=== PATIENT | female | born 1990 | race African-American/Black ===

== ENCOUNTER 2016-04-03 01:08 | Observation (INO) | payer MEDICAID ==
[~2016-04-03] VITALS: Ht 175.3 cm; Wt 136.2 kg
[2016-04-03] VITALS (861 sets, daily range): BP systolic 122–140; BP diastolic 67–99; PULSE 64–84; TEMP 97–98.5; O2SAT 80–100
[2016-04-03] MEDS ORDERED: PRINZIDE 12.5 M1 TAB PO (03:02)
[2016-04-03] MEDS ORDERED: P-D NATAL W/FOL1 TAB PO (03:02)
[2016-04-03 04:01] LABS: BASO % 0.1 % (0.0-2.0); EOS # 0.1 (0.0-0.7); EOS % 0.8 % (0-4.0); GRAN # 4.8 (1.4-6.5); HEMATOCRIT 37.2 % (37.0-47.0); LYMPH # 3.3 (1.2-3.4); LYMPH % 37.8 % (20.0-51.0); MEAN CELL VOLUME 87 fl (80.0-100.0); MEAN CORPUSCULAR HEMOGLOBIN 28 pg (27.0-31.0); MEAN CORPUSCULAR HGB CONC 32 g/dl (33.0-37.0); MEAN PLATELET VOLUME 11.1 fl (7.4-10.4); MONO # 0.4 (0.1-0.6); MONO % 5.1 % (1.7-9.3); PLATELET COUNT 217 K/mm3 (130-400); RED BLOOD COUNT 4.26 M/mm3 (4.10-5.30); REDCELL DISTRIBUTION WIDTH-CV 12.7 % (11.5-14.5); WHITE BLOOD COUNT 8.6 K/mm3 (4.8-10.8)
[2016-04-03 04:11] LABS: CALCIUM 8.6 mg/dL (8.4-10.2); CREATININE, serum 0.65 mg/dL (0.52-1.25); POTASSIUM 3.3 mmol/L (3.4-5.0)
[2016-04-03 04:42] LABS: THYROID STIMULATING HORMONE 1.46 uIU/mL (0.465-4.680)
[2016-04-04 00:58] VITALS: BP 135/72; PULSE 99; TEMP 99.5
[2016-04-04 03:50] VITALS: BP 115/59; PULSE 70; TEMP 98.2
[2016-04-04 08:41] VITALS: BP 141/65; PULSE 94; TEMP 98.5
[2016-04-04 10:54] LABS: MAGNESIUM 1.9 mg/dL (1.6-2.3); POTASSIUM 3.6 mmol/L (3.4-5.0)
[2016-04-04 12:19] VITALS: BP 124/75; PULSE 84; TEMP 98.5
[2016-04-04] MEDS ORDERED: KEPPRA 500MG500 MG PO (13:19)
== END 2016-04-04 15:06 | disposition home or self-care (01) ==
LOC: IMCU 01:08 → ICU 01:50 → MEDICAL 01:50 → SURG 20:00 → ICU 20:00 → MEDICAL 20:30
PROVIDERS: Internal Medicine
DX: G40.409 Other generalized epilepsy and epileptic syndromes, not intractable, without status epilepticus (principal); I10 Essential (primary) hypertension
CPT/HCPCS: 99223-AI; 99239; A9585; G0378; J1170; J1644; J2405; J7030

== ENCOUNTER 2016-05-18 22:37 | Emergency (ER) | payer MEDICAID ==
[~2016-05-18] VITALS: Ht 175.3 cm; Wt 120.5 kg
[~2016-05-18 22:37] MED LIST: KEPPRA 500MG500 MG PO; P-D NATAL W/FOL1 TAB PO; PRINZIDE 12.5 M1 TAB PO
[2016-05-18 22:43] VITALS: TEMP 98.4
[2016-05-19] MEDS ORDERED: EPIPEN 2-PAK1 MG/ML IM (01:16)
[2016-05-19] MEDS ORDERED: PREDNISONE20 MG PO (01:16)
[2016-05-19 01:27] VITALS: BP 120/64; PULSE 69
== END 2016-05-19 01:29 | disposition home or self-care (01) ==
LOC: COL.ER 22:37
DX: T78.3XXA Angioneurotic edema, initial encounter (principal); I10 Essential (primary) hypertension
CPT/HCPCS: J0171; J2930

== ENCOUNTER 2016-06-19 14:15 | Observation (INO) | payer MEDICAID ==
[2016-06-19] VITALS (150 sets, daily range): BP systolic 133; BP diastolic 79; PULSE 82; TEMP 97.9; O2SAT 87–100
[~2016-06-19] VITALS: Ht 177.8 cm; Wt 132.5 kg
[~2016-06-19 14:15] MED LIST changes: +EPIPEN 2-PAK1 MG/ML IM; +PREDNISONE20 MG PO
[2016-06-19] MEDS ORDERED: PROVIGIL200 MG PO ×2 (14:18→15:43)
[2016-06-19] MEDS ORDERED: KEPPRA 500MG500 MG PO (14:42)
[2016-06-19] MEDS ORDERED: PRINZIDE 25 MG-1 TAB PO (14:44)
[2016-06-19 15:40] LABS: BASO % 0.1 % (0.0-2.0); EOS # 0.1 (0.0-0.7); EOS % 0.6 % (0-4.0); GRAN # 5.3 (1.4-6.5); GRAN % 66.9 % (42.2-75.2); HEMATOCRIT 41.4 % (37.0-47.0); HEMOGLOBIN 13.3 g/dl (12.5-16.0); LYMPH # 2.1 (1.2-3.4); LYMPH % 26.2 % (20.0-51.0); MEAN CELL VOLUME 89 fl (80.0-100.0); MEAN CORPUSCULAR HEMOGLOBIN 29 pg (27.0-31.0); MEAN CORPUSCULAR HGB CONC 32 g/dl (33.0-37.0); MEAN PLATELET VOLUME 11.6 fl (7.4-10.4); MONO # 0.5 (0.1-0.6); MONO % 5.9 % (1.7-9.3); PLATELET COUNT 254 K/mm3 (130-400); RED BLOOD COUNT 4.66 M/mm3 (4.10-5.30); REDCELL DISTRIBUTION WIDTH-CV 12.6 % (11.5-14.5); WHITE BLOOD COUNT 7.9 K/mm3 (4.8-10.8)
[2016-06-19] MEDS ORDERED: MICROZIDE12.5 MG PO (15:45)
[2016-06-19] MEDS ORDERED: NORVASC 10MG10 MG PO (15:45)
[2016-06-19 16:20] LABS: ADJUSTED CALCIUM 9.5 mg/dL (8.4-10.2); ALBUMIN 4.4 gm/dL (3.5-5.0); BILIRUBIN,TOTAL 0.7 mg/dL (0.0-1.0); CALCIUM 9.8 mg/dL (8.4-10.2); CREATININE, serum 0.77 mg/dL (0.52-1.25); POTASSIUM 3.1 mmol/L (3.4-5.0); TOTAL PROTEIN 8.1 gm/dL (6.4-8.2)
[2016-06-19 16:48] LABS: PH 8 (5-8); SQUAMOUS EPITHELIAL 0-2 /hpf; URINE APPEARANCE Clear; URINE BACTERIA None Seen /hpf; URINE BILIRUBIN Negative (NEGATIVE); URINE BLOOD 2+ (NEGATIVE); URINE COLOR Yellow; URINE GLUCOSE Negative (NEGATIVE); URINE KETONE Negative (NEGATIVE); URINE RBC 0-2 /hpf; URINE UROBILINOGEN Negative (NEGATIVE); URINE WBC 0-2 /hpf
[2016-06-19 16:54] LABS: AMPHETAMINE URINE NEGATIVE; BARBITURATES URINE NEGATIVE; BENZODIAZEPINES URINE NEGATIVE; BUPRENORPHINE URINE NEGATIVE; METHADONE URINE NEGATIVE; OPIATES URINE NEGATIVE; OXYCODONE URINE NEGATIVE; PHENCYCLIDINE URINE NEGATIVE; PROPOXYPHENE URINE NEGATIVE; THC CANNABINOIDS URINE NEGATIVE
[2016-06-19] MEDS ORDERED: PREDNISONE10 MG PO (20:53)
[2016-06-19] MEDS ORDERED: HCTZ 25MG TAB25 MG PO (20:55)
[2016-06-20] VITALS (321 sets, daily range): BP systolic 99–146; BP diastolic 64–98; PULSE 54–73; TEMP 97–98.6; O2SAT 77–100
[2016-06-20 06:54] LABS: POTASSIUM 3.4 mmol/L (3.4-5.0)
[2016-06-20 08:02] LABS: MAGNESIUM 2.1 mg/dL (1.6-2.3)
[2016-06-20] MEDS ORDERED: P-D NATAL W/FOL1 TAB (08:57)
[2016-06-20] MEDS ORDERED: PREDNISONE20 MG (08:57)
[2016-06-21 03:49] VITALS: BP 147/94; PULSE 68; TEMP 97
[2016-06-21 05:49] LABS: BASO % 0.2 % (0.0-2.0); EOS # 0.2 (0.0-0.7); EOS % 2.7 % (0-4.0); GRAN # 3.1 (1.4-6.5); GRAN % 56.4 % (42.2-75.2); HEMATOCRIT 39.9 % (37.0-47.0); HEMOGLOBIN 12.6 g/dl (12.5-16.0); LYMPH # 1.9 (1.2-3.4); LYMPH % 34.4 % (20.0-51.0); MEAN CELL VOLUME 90 fl (80.0-100.0); MEAN CORPUSCULAR HEMOGLOBIN 29 pg (27.0-31.0); MEAN CORPUSCULAR HGB CONC 32 g/dl (33.0-37.0); MEAN PLATELET VOLUME 11.2 fl (7.4-10.4); MONO # 0.3 (0.1-0.6); MONO % 6.1 % (1.7-9.3); PLATELET COUNT 211 K/mm3 (130-400); RED BLOOD COUNT 4.42 M/mm3 (4.10-5.30); REDCELL DISTRIBUTION WIDTH-CV 12.5 % (11.5-14.5); WHITE BLOOD COUNT 5.6 K/mm3 (4.8-10.8)
[2016-06-21 05:55] LABS: CALCIUM 8.8 mg/dL (8.4-10.2); CREATININE, serum 0.6 mg/dL (0.52-1.25); POTASSIUM 3.4 mmol/L (3.4-5.0)
[2016-06-21 08:00] VITALS: BP 151/90; PULSE 69; TEMP 97.6
[2016-06-21] MEDS ORDERED: KEPPRA1000 MG PO ×2 (10:22→10:23)
[2016-06-21] MEDS ORDERED: VIMPAT200 MG PO (10:25)
[2016-06-21] MEDS ORDERED: KLOR-CON 1010 MEQ PO (11:34)
== END 2016-06-21 12:19 | disposition home or self-care (01) ==
LOC: COL.ER 14:15 → IMCU 17:03 → ICU 19:54 → IMCU 19:54 → ICU 06-21 12:19
PROVIDERS: Family Medicine; Internal Medicine
DX: R56.9 Unspecified convulsions (principal); G43.909 Migraine, unspecified, not intractable, without status migrainosus; G47.419 Narcolepsy without cataplexy; E87.6 Hypokalemia; I10 Essential (primary) hypertension; E66.01 Morbid (severe) obesity due to excess calories
CPT/HCPCS: 99233-AI; 99239; A9585; C9254; G0378; J1170; J1650; J1885; J1953; J2060; J2405; J7030; J7120

== ENCOUNTER 2016-06-27 15:27 | Emergency (ER) | payer MEDICAID ==
[~2016-06-27] VITALS: Ht 175.3 cm; Wt 127.3 kg
[~2016-06-27 15:27] MED LIST changes: +HCTZ 25MG TAB25 MG PO; +KEPPRA1000 MG PO; +KLOR-CON 1010 MEQ PO; +MICROZIDE12.5 MG PO; +NORVASC 10MG10 MG PO; +P-D NATAL W/FOL1 TAB; +PREDNISONE10 MG PO; +PREDNISONE20 MG; +PRINZIDE 25 MG-1 TAB PO; +PROVIGIL200 MG PO; +VIMPAT200 MG PO
[2016-06-27 15:28] VITALS: TEMP 97.7
[2016-06-27] MEDS ORDERED: ULTRAM 50MG TAB50 MG PO (16:37)
[2016-06-27 17:51] LABS: CALCIUM 9.2 mg/dL (8.4-10.2); CREATININE, serum 0.73 mg/dL (0.52-1.25); POTASSIUM 3.1 mmol/L (3.4-5.0)
[2016-06-27 18:03] VITALS: BP 140/75; PULSE 76
[2016-06-27 18:08] LABS: PROLACTIN 8.9 ng/mL (3.0-18.6)
[2016-07-02 10:25] LABS: LACOSAMIDE 4.8 mcg/mL (())
== END 2016-06-27 18:04 | disposition home or self-care (01) ==
LOC: COL.ER 15:27
PROVIDERS: Emergency Medicine
DX: R51 Headache (principal); M54.2 Cervicalgia; G25.9 Extrapyramidal and movement disorder, unspecified
CPT/HCPCS: J1885

== ENCOUNTER 2016-08-20 21:00 | Emergency (ER) | payer MEDICAID ==
[~2016-08-20] VITALS: Ht 175.3 cm; Wt 113.6 kg
[~2016-08-20 21:00] MED LIST changes: +ULTRAM 50MG TAB50 MG PO
[2016-08-20 21:03] VITALS: TEMP 98.4
[2016-08-20 21:26] LABS: BASO % 0.3 % (0.0-2.0); EOS # 0.1 (0.0-0.7); EOS % 0.9 % (0-4.0); GRAN # 6.5 (1.4-6.5); GRAN % 50.5 % (42.2-75.2); HEMATOCRIT 43.1 % (37.0-47.0); HEMOGLOBIN 14.1 g/dl (12.5-16.0); LYMPH # 5.5 (1.2-3.4); LYMPH % 42.9 % (20.0-51.0); MEAN CELL VOLUME 88 fl (80.0-100.0); MEAN CORPUSCULAR HEMOGLOBIN 29 pg (27.0-31.0); MEAN CORPUSCULAR HGB CONC 33 g/dl (33.0-37.0); MEAN PLATELET VOLUME 11.2 fl (7.4-10.4); MONO # 0.7 (0.1-0.6); MONO % 5.2 % (1.7-9.3); PLATELET COUNT 280 K/mm3 (130-400); RED BLOOD COUNT 4.92 M/mm3 (4.10-5.30); WHITE BLOOD COUNT 12.9 K/mm3 (4.8-10.8)
[2016-08-20 21:33] LABS: ADJUSTED CALCIUM 8.9 mg/dL (8.4-10.2); ALBUMIN 4.5 gm/dL (3.5-5.0); BILIRUBIN,TOTAL 0.5 mg/dL (0.0-1.0); CALCIUM 9.3 mg/dL (8.4-10.2); CREATININE, serum 0.69 mg/dL (0.52-1.25); POTASSIUM 3.1 mmol/L (3.4-5.0); TOTAL PROTEIN 8.2 gm/dL (6.4-8.2)
[2016-08-20 21:48] LABS: PROLACTIN 40.4 ng/mL (3.0-18.6)
[2016-08-20] MEDS ORDERED: PREDNISONE20 MG PO (22:10)
[2016-08-20] MEDS ORDERED: EPIPEN 2-PAK1 MG/ML IM (22:10)
[2016-08-20 22:47] VITALS: BP 128/70; PULSE 90
== END 2016-08-20 22:49 | disposition home or self-care (01) ==
LOC: COL.ER 21:00
PROVIDERS: Emergency Medicine
DX: T78.1XXA Other adverse food reactions, not elsewhere classified, initial encounter (principal); G40.909 Epilepsy, unspecified, not intractable, without status epilepticus; F41.9 Anxiety disorder, unspecified; I10 Essential (primary) hypertension; J45.909 Unspecified asthma, uncomplicated; F17.290 Nicotine dependence, other tobacco product, uncomplicated; Z91.018 Allergy to other foods; Z98.890 Other specified postprocedural states
CPT/HCPCS: J1885; J2060; J2930; J7030

== ENCOUNTER 2016-08-23 21:21 | Observation (INO) | payer MEDICAID ==
[~2016-08-23] VITALS: Ht 175.3 cm; Wt 134.0 kg
[2016-08-23 22:25] LABS: HEMOGLOBIN 13.3 g/dl (12.5-16.0); MEAN CELL VOLUME 87 fl (80.0-100.0); MEAN CORPUSCULAR HEMOGLOBIN 29 pg (27.0-31.0); MEAN CORPUSCULAR HGB CONC 33 g/dl (33.0-37.0); MEAN PLATELET VOLUME 10.5 fl (7.4-10.4); PLATELET COUNT 221 K/mm3 (130-400); RED BLOOD COUNT 4.62 M/mm3 (4.10-5.30); REDCELL DISTRIBUTION WIDTH-CV 12.2 % (11.5-14.5)
[2016-08-23 22:27] LABS: ADD PATHOLOGY DIFF REVIEW NO
[2016-08-23 22:36] LABS: AMPHETAMINE URINE NEGATIVE; BARBITURATES URINE NEGATIVE; BENZODIAZEPINES URINE NEGATIVE; BUPRENORPHINE URINE NEGATIVE; METHADONE URINE NEGATIVE; OPIATES URINE NEGATIVE; OXYCODONE URINE NEGATIVE; PHENCYCLIDINE URINE NEGATIVE; PROPOXYPHENE URINE NEGATIVE; THC CANNABINOIDS URINE NEGATIVE
[2016-08-23 22:44] LABS: ADJUSTED CALCIUM 8.7 mg/dL (8.4-10.2); ALANINE AMINOTRANSFERASE 36 U/L (9-52); ALBUMIN 4.1 gm/dL (3.5-5.0); ALKALINE PHOSPHATASE 73 U/L (50-136); ANION GAP 13 mmol/L (7-16); BILIRUBIN,TOTAL 0.6 mg/dL (0.0-1.0); BLOOD UREA NITROGEN 14 mg/dL (7-17); CALCIUM 8.8 mg/dL (8.4-10.2); CARBON DIOXIDE 24 mmol/L (22-30); CHLORIDE 104 mmol/L (98-107); CREATININE, serum 0.67 mg/dL (0.52-1.25); GLUCOSE 91 mg/dL (74-106); SODIUM 141 mmol/L (137-145); TOTAL PROTEIN 7.5 gm/dL (6.4-8.2)
[2016-08-23 22:59] LABS: BAND 10 % (0-10); EOSINOPHIL 4 % (0-4); NEUTROPHILS 53 % (42.0-75.2); PROLACTIN 108.9 ng/mL (3.0-18.6); TOTAL CELLS COUNTED 100
[2016-08-23 23:10] LABS: ACETAMINOPHEN < 10 ug/mL (10-30); POTASSIUM 2.9 mmol/L (3.4-5.0); SALICYLATE < 1.0 mg/dL
[2016-08-24] VITALS (372 sets, daily range): BP systolic 103–151; BP diastolic 55–98; PULSE 59–77; TEMP 97.5–98.5; O2SAT 93–100
[2016-08-24] MEDS ORDERED: IRON90 MG PO (01:42)
[2016-08-24] MEDS ORDERED: POTASSIUM PO (01:43)
[2016-08-24 05:49] LABS: CALCIUM 8.2 mg/dL (8.4-10.2); CREATININE, serum 0.66 mg/dL (0.52-1.25); MAGNESIUM 2.1 mg/dL (1.6-2.3); POTASSIUM 3.1 mmol/L (3.4-5.0)
[2016-08-25 03:26] VITALS: BP 100/68; PULSE 115; TEMP 97.4
[2016-08-25 08:06] VITALS: BP 143/85; PULSE 76; TEMP 98.6
[2016-08-25 11:48] VITALS: BP 144/74; PULSE 74; TEMP 98
[2016-08-25] MEDS ORDERED: DEPAKOTE ER 50500 MG PO (12:59)
== END 2016-08-25 16:28 ==
LOC: COL.ER 21:21 → IMCU 23:51 → MEDICAL 08-24 18:29
PROVIDERS: Emergency Medicine; Family Medicine
DX: G40.209 Localization-related (focal) (partial) symptomatic epilepsy and epileptic syndromes with complex partial seizures, not intractable, without status epilepticus (principal); R41.82 Altered mental status, unspecified; I10 Essential (primary) hypertension; E87.6 Hypokalemia; R45.851 Suicidal ideations; G43.909 Migraine, unspecified, not intractable, without status migrainosus; F17.290 Nicotine dependence, other tobacco product, uncomplicated
CPT/HCPCS: 90791-AI; 99223-AI; 99232-AI; 99233-AI; G0378; J1200; J1630; J1953; J2060

== ENCOUNTER 2016-09-04 18:11 | Emergency (ER) | payer MEDICAID ==
[~2016-09-04] VITALS: Ht 175.3 cm; Wt 139.5 kg
[~2016-09-04 18:11] MED LIST changes: +DEPAKOTE ER 50500 MG PO; +IRON90 MG PO; +POTASSIUM PO
[2016-09-04 18:15] VITALS: TEMP 97.7
[2016-09-04 18:31] LABS: BASO % 0.3 % (0.0-2.0); EOS # 0.1 (0.0-0.7); EOS % 0.5 % (0-4.0); GRAN # 6.6 (1.4-6.5); GRAN % 57.6 % (42.2-75.2); HEMATOCRIT 42.4 % (37.0-47.0); HEMOGLOBIN 14.2 g/dl (12.5-16.0); LYMPH # 4.1 (1.2-3.4); LYMPH % 35.8 % (20.0-51.0); MEAN CELL VOLUME 87 fl (80.0-100.0); MEAN CORPUSCULAR HEMOGLOBIN 29 pg (27.0-31.0); MEAN CORPUSCULAR HGB CONC 34 g/dl (33.0-37.0); MEAN PLATELET VOLUME 10.8 fl (7.4-10.4); MONO # 0.6 (0.1-0.6); MONO % 5.5 % (1.7-9.3); PLATELET COUNT 240 K/mm3 (130-400); RED BLOOD COUNT 4.89 M/mm3 (4.10-5.30); REDCELL DISTRIBUTION WIDTH-CV 12.4 % (11.5-14.5); WHITE BLOOD COUNT 11.4 K/mm3 (4.8-10.8)
[2016-09-04 18:51] LABS: ADJUSTED CALCIUM 8.8 mg/dL (8.4-10.2); ALBUMIN 4.5 gm/dL (3.5-5.0); BILIRUBIN,TOTAL 0.6 mg/dL (0.0-1.0); C-REACTIVE PROTEIN 0.7 mg/dL (0.0-0.9); CALCIUM 9.2 mg/dL (8.4-10.2); CREATININE, serum 0.75 mg/dL (0.52-1.25); POTASSIUM 3.3 mmol/L (3.4-5.0); TOTAL PROTEIN 7.9 gm/dL (6.4-8.2)
[2016-09-04 19:30] VITALS: BP 161/78; PULSE 83
== END 2016-09-04 19:30 | disposition home or self-care (01) ==
LOC: COL.ER 18:11
PROVIDERS: Family Medicine
DX: T78.1XXA Other adverse food reactions, not elsewhere classified, initial encounter (principal); R09.89 Other specified symptoms and signs involving the circulatory and respiratory systems; R10.12 Left upper quadrant pain; G40.909 Epilepsy, unspecified, not intractable, without status epilepticus
CPT/HCPCS: J1200; J2060; J7030

== ENCOUNTER 2016-09-28 22:36 | Emergency (ER) | payer MEDICAID ==
[2016-09-28 22:44] VITALS: TEMP 98.3
[2016-09-28 22:58] LABS: BASO % 0.5 % (0.0-2.0); EOS # 0.1 (0.0-0.7); EOS % 1.6 % (0-4.0); GRAN # 4.7 (1.4-6.5); GRAN % 59.3 % (42.2-75.2); HEMOGLOBIN 12.8 g/dl (12.5-16.0); LYMPH # 2.5 (1.2-3.4); LYMPH % 32.2 % (20.0-51.0); MEAN CELL VOLUME 90 fl (80.0-100.0); MEAN CORPUSCULAR HEMOGLOBIN 29 pg (27.0-31.0); MEAN CORPUSCULAR HGB CONC 32 g/dl (33.0-37.0); MEAN PLATELET VOLUME 11.2 fl (7.4-10.4); MONO # 0.5 (0.1-0.6); MONO % 6.1 % (1.7-9.3); PLATELET COUNT 217 K/mm3 (130-400); RED BLOOD COUNT 4.47 M/mm3 (4.10-5.30); REDCELL DISTRIBUTION WIDTH-CV 12.7 % (11.5-14.5); WHITE BLOOD COUNT 7.9 K/mm3 (4.8-10.8)
[2016-09-28 23:05] LABS: ADJUSTED CALCIUM 8.9 mg/dL (8.4-10.2); ALANINE AMINOTRANSFERASE 25 U/L (9-52); ALBUMIN 4.2 gm/dL (3.5-5.0); ALKALINE PHOSPHATASE 61 U/L (50-136); ANION GAP 15 mmol/L (7-16); BILIRUBIN,TOTAL 0.4 mg/dL (0.0-1.0); BLOOD UREA NITROGEN 11 mg/dL (7-17); CALCIUM 9.1 mg/dL (8.4-10.2); CARBON DIOXIDE 24 mmol/L (22-30); CHLORIDE 103 mmol/L (98-107); CREATININE, serum 0.75 mg/dL (0.52-1.25); GLUCOSE 111 mg/dL (74-106); SODIUM 141 mmol/L (137-145); TOTAL PROTEIN 7.7 gm/dL (6.4-8.2)
[2016-09-28 23:22] LABS: PROLACTIN 21.1 ng/mL (3.0-18.6)
[2016-09-28] MEDS ORDERED: ATIVAN 0.50.5 MG/TAB PO (23:44)
[2016-09-28 23:48] VITALS: BP 134/82; PULSE 89
[2016-09-30] MEDS ORDERED: CEFTIN 250250 MG/TAB PO (19:18)
== END 2016-09-29 00:25 | disposition home or self-care (01) ==
LOC: COL.ER 22:36
PROVIDERS: Emergency Medicine
DX: R56.9 Unspecified convulsions (principal); G40.909 Epilepsy, unspecified, not intractable, without status epilepticus; I10 Essential (primary) hypertension
CPT/HCPCS: J1885; J2060; J7030

== ENCOUNTER 2016-09-30 17:19 | Emergency (ER) | payer MEDICAID ==
[~2016-09-30] VITALS: Ht 175.3 cm; Wt 136.4 kg
[~2016-09-30 17:19] MED LIST changes: +ATIVAN 0.50.5 MG/TAB PO
[2016-09-30 17:21] VITALS: TEMP 99.6
[2016-09-30 17:43] LABS: BASO % 0.6 % (0.0-2.0); EOS # 0.1 (0.0-0.7); EOS % 1.4 % (0-4.0); GRAN # 3.7 (1.4-6.5); GRAN % 55.7 % (42.2-75.2); HEMATOCRIT 36.6 % (37.0-47.0); HEMOGLOBIN 11.9 g/dl (12.5-16.0); LYMPH # 2.4 (1.2-3.4); LYMPH % 35.9 % (20.0-51.0); MEAN CELL VOLUME 89 fl (80.0-100.0); MEAN CORPUSCULAR HEMOGLOBIN 29 pg (27.0-31.0); MEAN CORPUSCULAR HGB CONC 33 g/dl (33.0-37.0); MEAN PLATELET VOLUME 11.2 fl (7.4-10.4); MONO # 0.4 (0.1-0.6); MONO % 6.1 % (1.7-9.3); PLATELET COUNT 203 K/mm3 (130-400); RED BLOOD COUNT 4.13 M/mm3 (4.10-5.30); REDCELL DISTRIBUTION WIDTH-CV 12.3 % (11.5-14.5); WHITE BLOOD COUNT 6.6 K/mm3 (4.8-10.8)
[2016-09-30 17:52] LABS: ADJUSTED CALCIUM 9.1 mg/dL (8.4-10.2); ALBUMIN 3.9 gm/dL (3.5-5.0); BILIRUBIN,TOTAL 0.3 mg/dL (0.0-1.0); CREATININE, serum 0.76 mg/dL (0.52-1.25); POTASSIUM 3.4 mmol/L (3.4-5.0)
[2016-09-30 19:09] LABS: PH 6 (5-8); SQUAMOUS EPITHELIAL 0-2 /hpf; URINE APPEARANCE Clear; URINE BACTERIA None Seen /hpf; URINE BILIRUBIN Negative (NEGATIVE); URINE BLOOD 3+ (NEGATIVE); URINE COLOR Yellow; URINE GLUCOSE Negative (NEGATIVE); URINE KETONE Negative (NEGATIVE); URINE RBC >50 /hpf; URINE UROBILINOGEN Negative (NEGATIVE)
[2016-09-30] MEDS ORDERED: CEFTIN 250250 MG/TAB PO (19:18)
[2016-09-30 19:28] VITALS: BP 155/88; PULSE 84
== END 2016-09-30 19:30 | disposition home or self-care (01) ==
LOC: COL.ER 17:19
PROVIDERS: Emergency Medicine
DX: G40.909 Epilepsy, unspecified, not intractable, without status epilepticus (principal); N39.0 Urinary tract infection, site not specified; E11.9 Type 2 diabetes mellitus without complications; F17.210 Nicotine dependence, cigarettes, uncomplicated
CPT/HCPCS: J1953; J2765; J3010; J7030

== ENCOUNTER 2016-10-17 01:24 | Emergency (ER) | payer MEDICAID ==
[~2016-10-17] VITALS: Ht 175.3 cm; Wt 143.2 kg
[~2016-10-17 01:24] MED LIST changes: +CEFTIN 250250 MG/TAB PO
[2016-10-17 01:30] VITALS: BP 142/75; TEMP 98.2
[2016-10-17] MEDS ORDERED: PREDNISONE20 MG PO (03:17)
[2016-10-17 03:26] VITALS: PULSE 89
[2016-10-17] MEDS ORDERED: ZOFRAN ODT4 MG PO (03:26)
== END 2016-10-17 03:26 | disposition home or self-care (01) ==
LOC: COL.ER 01:24
DX: J20.9 Acute bronchitis, unspecified (principal); J45.909 Unspecified asthma, uncomplicated; I10 Essential (primary) hypertension; E11.9 Type 2 diabetes mellitus without complications; G40.909 Epilepsy, unspecified, not intractable, without status epilepticus; F17.200 Nicotine dependence, unspecified, uncomplicated; Z98.890 Other specified postprocedural states
CPT/HCPCS: J7512

== ENCOUNTER 2016-10-25 23:17 | Emergency (ER) | payer MEDICAID ==
[~2016-10-25] VITALS: Ht 175.3 cm; Wt 143.2 kg
[~2016-10-25 23:17] MED LIST changes: +ZOFRAN ODT4 MG PO
[2016-10-25 23:22] VITALS: BP 143/86; TEMP 98.5
[2016-10-25] MEDS ORDERED: LATUDA60 MG PO (23:28)
[2016-10-25] MEDS ORDERED: AMBIEN 10MG10 MG PO (23:28)
[2016-10-26] MEDS ORDERED: PROMETHAZINE V473 M2 PO (00:13)
[2016-10-26] MEDS ORDERED: FLOVENT 110MCG7.9 GM IH (00:13)
[2016-10-26 00:42] VITALS: PULSE 65
== END 2016-10-26 00:45 | disposition home or self-care (01) ==
LOC: COL.ER 23:17
DX: J40 Bronchitis, not specified as acute or chronic (principal); I10 Essential (primary) hypertension; Z87.891 Personal history of nicotine dependence

== ENCOUNTER 2016-11-03 16:52 | Emergency (ER) | payer MEDICAID ==
[~2016-11-03] VITALS: Ht 175.3 cm; Wt 143.2 kg
[~2016-11-03 16:52] MED LIST changes: +AMBIEN 10MG10 MG PO; +FLOVENT 110MCG7.9 GM IH; +LATUDA60 MG PO; +PROMETHAZINE V473 M2 PO
[2016-11-03 16:55] VITALS: BP 143/78; TEMP 98.8
[2016-11-03 17:56] LABS: ADJUSTED CALCIUM 8.8 mg/dL (8.4-10.2); ALBUMIN 4.1 gm/dL (3.5-5.0); BILIRUBIN,TOTAL 0.3 mg/dL (0.0-1.0); CALCIUM 8.9 mg/dL (8.4-10.2); CREATININE, serum 0.66 mg/dL (0.52-1.25); POTASSIUM 3.2 mmol/L (3.4-5.0); TOTAL PROTEIN 7.5 gm/dL (6.4-8.2)
[2016-11-03 18:27] LABS: PH 9 (5-8); SQUAMOUS EPITHELIAL 0-2 /hpf; URINE APPEARANCE Turbid; URINE BACTERIA Rare /hpf; URINE BILIRUBIN Negative (NEGATIVE); URINE BLOOD Negative (NEGATIVE); URINE COLOR Yellow; URINE GLUCOSE Negative (NEGATIVE); URINE KETONE Negative (NEGATIVE); URINE RBC 0-2 /hpf; URINE UROBILINOGEN Negative (NEGATIVE); URINE WBC None Seen /hpf
[2016-11-03 19:32] VITALS: PULSE 73
== END 2016-11-03 19:32 | disposition home or self-care (01) ==
LOC: COL.ER 16:52
PROVIDERS: Emergency Medicine
DX: R60.0 Localized edema (principal); E11.9 Type 2 diabetes mellitus without complications; I10 Essential (primary) hypertension; F17.290 Nicotine dependence, other tobacco product, uncomplicated

== ENCOUNTER 2016-11-04 22:16 | Emergency (ER) | payer MEDICAID ==
[~2016-11-04] VITALS: Ht 175.3 cm; Wt 143.2 kg
[2016-11-04 22:24] VITALS: TEMP 97.7
[2016-11-04 23:40] VITALS: BP 132/83; PULSE 86
== END 2016-11-04 23:40 | disposition home or self-care (01) ==
LOC: COL.ER 22:16
DX: S83.92XA Sprain of unspecified site of left knee, initial encounter (principal); S93.402A Sprain of unspecified ligament of left ankle, initial encounter; W18.39XA Other fall on same level, initial encounter

== ENCOUNTER 2016-11-07 23:05 | Emergency (ER) | payer MEDICAID ==
[~2016-11-07] VITALS: Ht 175.3 cm; Wt 163.6 kg
[2016-11-07 23:06] VITALS: TEMP 98.4
[2016-11-07 23:52] LABS: BASO % 0.5 % (0.0-2.0); EOS # 0.3 (0.0-0.7); EOS % 3.1 % (0-4.0); GRAN # 5.1 (1.4-6.5); GRAN % 63.8 % (42.2-75.2); HEMATOCRIT 40.2 % (37.0-47.0); LYMPH # 2.2 (1.2-3.4); LYMPH % 26.9 % (20.0-51.0); MEAN CELL VOLUME 90 fl (80.0-100.0); MEAN CORPUSCULAR HEMOGLOBIN 29 pg (27.0-31.0); MEAN CORPUSCULAR HGB CONC 32 g/dl (33.0-37.0); MONO # 0.4 (0.1-0.6); MONO % 5.3 % (1.7-9.3); PLATELET COUNT 174 K/mm3 (130-400); RED BLOOD COUNT 4.47 M/mm3 (4.10-5.30)
[2016-11-08 00:17] LABS: ADJUSTED CALCIUM 8.9 mg/dL (8.4-10.2); ALBUMIN 4.1 gm/dL (3.5-5.0); BILIRUBIN,TOTAL 0.5 mg/dL (0.0-1.0); CREATININE, serum 0.66 mg/dL (0.52-1.25); POTASSIUM 3.1 mmol/L (3.4-5.0); TOTAL PROTEIN 7.3 gm/dL (6.4-8.2)
[2016-11-08 00:25] LABS: PROLACTIN 21.7 ng/mL (3.0-18.6)
[2016-11-08] MEDS ORDERED: PREDNISONE20 MG PO (00:40)
[2016-11-08 00:52] VITALS: BP 138/77; PULSE 86
== END 2016-11-08 00:52 | disposition home or self-care (01) ==
LOC: COL.ER 23:05
PROVIDERS: Emergency Medicine
DX: T78.1XXA Other adverse food reactions, not elsewhere classified, initial encounter (principal); E87.6 Hypokalemia; G40.909 Epilepsy, unspecified, not intractable, without status epilepticus; I10 Essential (primary) hypertension; F41.9 Anxiety disorder, unspecified; F17.210 Nicotine dependence, cigarettes, uncomplicated; Z32.02 Encounter for pregnancy test, result negative
CPT/HCPCS: J7512

== ENCOUNTER 2016-11-12 18:44 | Emergency (ER) | payer MEDICAID ==
[~2016-11-12] VITALS: Ht 175.3 cm; Wt 136.7 kg
[2016-11-12 19:05] VITALS: BP 142/92; TEMP 98.7
[2016-11-12] MEDS ORDERED: NORVASC 10MG10 MG PO (19:11)
[2016-11-12] MEDS ORDERED: LEXAPRO20 MG PO (19:11)
[2016-11-12 21:38] LABS: BASO % 0.4 % (0.0-2.0); EOS # 0.3 (0.0-0.7); EOS % 2.7 % (0-4.0); GRAN # 5.5 (1.4-6.5); GRAN % 54.9 % (42.2-75.2); HEMATOCRIT 41.4 % (37.0-47.0); HEMOGLOBIN 13.7 g/dl (12.5-16.0); LYMPH # 3.5 (1.2-3.4); LYMPH % 35.2 % (20.0-51.0); MEAN CELL VOLUME 88 fl (80.0-100.0); MEAN CORPUSCULAR HEMOGLOBIN 29 pg (27.0-31.0); MEAN CORPUSCULAR HGB CONC 33 g/dl (33.0-37.0); MEAN PLATELET VOLUME 10.9 fl (7.4-10.4); MONO # 0.7 (0.1-0.6); MONO % 6.6 % (1.7-9.3); PLATELET COUNT 259 K/mm3 (130-400); RED BLOOD COUNT 4.73 M/mm3 (4.10-5.30); REDCELL DISTRIBUTION WIDTH-CV 12.8 % (11.5-14.5); WHITE BLOOD COUNT 10.1 K/mm3 (4.8-10.8)
[2016-11-12 21:48] LABS: ADJUSTED CALCIUM 8.7 mg/dL (8.4-10.2); ALBUMIN 4.2 gm/dL (3.5-5.0); BILIRUBIN,TOTAL 0.4 mg/dL (0.0-1.0); CALCIUM 8.9 mg/dL (8.4-10.2); CREATININE, serum 0.55 mg/dL (0.52-1.25); PHOSPHOROUS 3.7 mg/dL (2.5-4.5); POTASSIUM 3.1 mmol/L (3.4-5.0); TOTAL PROTEIN 7.8 gm/dL (6.4-8.2)
[2016-11-12 23:19] VITALS: PULSE 64
== END 2016-11-12 23:19 | disposition home or self-care (01) ==
LOC: COL.ER 18:44
PROVIDERS: Emergency Medicine
DX: R51 Headache (principal); I10 Essential (primary) hypertension; E87.6 Hypokalemia; R56.9 Unspecified convulsions; R42 Dizziness and giddiness; R61 Generalized hyperhidrosis
CPT/HCPCS: J7030

== ENCOUNTER 2016-11-14 16:11 | Emergency (ER) | payer MEDICAID ==
[~2016-11-14] VITALS: Ht 175.3 cm; Wt 136.4 kg
[~2016-11-14 16:11] MED LIST changes: +LEXAPRO20 MG PO
[2016-11-14 16:14] VITALS: BP 143/88; PULSE 93; TEMP 98.6
== END 2016-11-14 18:11 | disposition home or self-care (01) ==
LOC: COL.ER 16:11
DX: S90.32XA Contusion of left foot, initial encounter (principal); I10 Essential (primary) hypertension; E11.9 Type 2 diabetes mellitus without complications; J45.909 Unspecified asthma, uncomplicated; F17.290 Nicotine dependence, other tobacco product, uncomplicated; W34.010A Accidental discharge of airgun, initial encounter; Y93.01 Activity, walking, marching and hiking; Y92.410 Unspecified street and highway as the place of occurrence of the external cause

== ENCOUNTER 2016-11-23 14:32 | Emergency (ER) | payer MEDICAID ==
[~2016-11-23] VITALS: Ht 22.9 cm; Wt 145.5 kg
[2016-11-23 14:35] VITALS: TEMP 97.7
[2016-11-23 14:57] LABS: BASO % 0.4 % (0.0-2.0); EOS # 0.2 (0.0-0.7); EOS % 2.4 % (0-4.0); GRAN # 5.4 (1.4-6.5); GRAN % 58.6 % (42.2-75.2); HEMATOCRIT 41.2 % (37.0-47.0); HEMOGLOBIN 13.4 g/dl (12.5-16.0); LYMPH # 2.9 (1.2-3.4); LYMPH % 31.6 % (20.0-51.0); MEAN CELL VOLUME 90 fl (80.0-100.0); MEAN CORPUSCULAR HEMOGLOBIN 29 pg (27.0-31.0); MEAN CORPUSCULAR HGB CONC 33 g/dl (33.0-37.0); MEAN PLATELET VOLUME 11.5 fl (7.4-10.4); MONO # 0.6 (0.1-0.6); MONO % 6.6 % (1.7-9.3); PLATELET COUNT 218 K/mm3 (130-400); RED BLOOD COUNT 4.58 M/mm3 (4.10-5.30); REDCELL DISTRIBUTION WIDTH-CV 13.2 % (11.5-14.5); WHITE BLOOD COUNT 9.2 K/mm3 (4.8-10.8)
[2016-11-23 15:22] LABS: ADJUSTED CALCIUM 9.1 mg/dL (8.4-10.2); ALBUMIN 4.2 gm/dL (3.5-5.0); BILIRUBIN,TOTAL 0.5 mg/dL (0.0-1.0); CALCIUM 9.3 mg/dL (8.4-10.2); CREATININE, serum 0.67 mg/dL (0.52-1.25); POTASSIUM 3.5 mmol/L (3.4-5.0); TOTAL PROTEIN 7.6 gm/dL (6.4-8.2)
[2016-11-23] MEDS ORDERED: PREDNISONE20 MG PO (17:07)
[2016-11-23 17:17] VITALS: BP 124/79; PULSE 78
== END 2016-11-23 17:24 | disposition home or self-care (01) ==
LOC: COL.ER 14:32
PROVIDERS: Family Medicine
DX: J45.909 Unspecified asthma, uncomplicated (principal); I10 Essential (primary) hypertension; G40.909 Epilepsy, unspecified, not intractable, without status epilepticus; G89.29 Other chronic pain; M54.9 Dorsalgia, unspecified
CPT/HCPCS: J2930

== ENCOUNTER 2016-11-29 20:03 | Emergency (ER) | payer MEDICAID ==
[~2016-11-29] VITALS: Ht 175.3 cm; Wt 148.2 kg
[2016-11-29 20:04] VITALS: TEMP 98.3
[2016-11-29 21:36] VITALS: BP 130/87; PULSE 79
== END 2016-11-29 21:36 | disposition home or self-care (01) ==
LOC: COL.ER 20:03
DX: R51 Headache (principal); E11.9 Type 2 diabetes mellitus without complications; I10 Essential (primary) hypertension; F20.9 Schizophrenia, unspecified; F43.10 Post-traumatic stress disorder, unspecified; F17.210 Nicotine dependence, cigarettes, uncomplicated; Z79.84 Long term (current) use of oral hypoglycemic drugs
CPT/HCPCS: J0595; J1200; J2550

== ENCOUNTER 2016-12-01 19:02 | Emergency (ER) | payer MEDICAID ==
[~2016-12-01] VITALS: Ht 175.3 cm; Wt 148.2 kg
[2016-12-01 19:06] VITALS: BP 113/42; PULSE 96; TEMP 97.5
[2016-12-01 19:42] LABS: BASO % 0.3 % (0.0-2.0); EOS # 0.3 (0.0-0.7); EOS % 3.1 % (0-4.0); GRAN # 6.3 (1.4-6.5); GRAN % 64.3 % (42.2-75.2); HEMATOCRIT 40.1 % (37.0-47.0); HEMOGLOBIN 13.2 g/dl (12.5-16.0); LYMPH # 2.7 (1.2-3.4); MEAN CELL VOLUME 90 fl (80.0-100.0); MEAN CORPUSCULAR HEMOGLOBIN 30 pg (27.0-31.0); MEAN CORPUSCULAR HGB CONC 33 g/dl (33.0-37.0); MEAN PLATELET VOLUME 11.1 fl (7.4-10.4); MONO # 0.5 (0.1-0.6); MONO % 5.1 % (1.7-9.3); PLATELET COUNT 210 K/mm3 (130-400); RED BLOOD COUNT 4.46 M/mm3 (4.10-5.30); REDCELL DISTRIBUTION WIDTH-CV 13.1 % (11.5-14.5); WHITE BLOOD COUNT 9.8 K/mm3 (4.8-10.8)
[2016-12-01 19:56] LABS: ADJUSTED CALCIUM 9.3 mg/dL (8.4-10.2); ALANINE AMINOTRANSFERASE 44 U/L (9-52); ALBUMIN 4.2 gm/dL (3.5-5.0); ALKALINE PHOSPHATASE 80 U/L (50-136); ANION GAP 10 mmol/L (7-16); BILIRUBIN,TOTAL 0.4 mg/dL (0.0-1.0); BLOOD UREA NITROGEN 11 mg/dL (7-17); C-REACTIVE PROTEIN 1.6 mg/dL (0.0-0.9); CALCIUM 9.5 mg/dL (8.4-10.2); CARBON DIOXIDE 28 mmol/L (22-30); CHLORIDE 103 mmol/L (98-107); CREATININE, serum 0.74 mg/dL (0.52-1.25); GLUCOSE 98 mg/dL (74-106); POTASSIUM 3.3 mmol/L (3.4-5.0); SODIUM 141 mmol/L (137-145); TOTAL PROTEIN 7.6 gm/dL (6.4-8.2)
[2016-12-01 20:05] LABS: TROPONIN-I < 0.012 ng/mL (0.000-0.034)
[2016-12-01] MEDS ORDERED: ZITHROMAX 250M250 MG PO (20:15)
== END 2016-12-01 20:30 | disposition home or self-care (01) ==
LOC: COL.ER 19:02
PROVIDERS: Emergency Medicine
DX: J45.909 Unspecified asthma, uncomplicated (principal); I10 Essential (primary) hypertension; F17.210 Nicotine dependence, cigarettes, uncomplicated
CPT/HCPCS: J7512

== ENCOUNTER 2016-12-09 17:46 | Emergency (ER) | payer MEDICAID ==
[~2016-12-09] VITALS: Ht 175.3 cm; Wt 148.2 kg
[~2016-12-09 17:46] MED LIST changes: +ZITHROMAX 250M250 MG PO
[2016-12-09 17:50] VITALS: BP 156/89; PULSE 94; TEMP 98.1
== END 2016-12-09 18:48 | disposition home or self-care (01) ==
LOC: COL.ER 17:46
DX: T78.1XXA Other adverse food reactions, not elsewhere classified, initial encounter (principal); L29.9 Pruritus, unspecified; E11.9 Type 2 diabetes mellitus without complications; I10 Essential (primary) hypertension; F41.9 Anxiety disorder, unspecified; J45.909 Unspecified asthma, uncomplicated; Z91.09 Other allergy status, other than to drugs and biological substances
CPT/HCPCS: J1100; J1200

== ENCOUNTER 2016-12-14 21:09 | Emergency (ER) | payer MEDICAID ==
[~2016-12-14] VITALS: Ht 175.3 cm; Wt 148.2 kg
[2016-12-14 21:09] VITALS: TEMP 98.3
[2016-12-14 22:25] LABS: ADJUSTED CALCIUM 8.5 mg/dL (8.4-10.2); ALANINE AMINOTRANSFERASE 32 U/L (9-52); ALBUMIN 4.4 gm/dL (3.5-5.0); ALKALINE PHOSPHATASE 64 U/L (50-136); ANION GAP 11 mmol/L (7-16); BASO % 0.3 % (0.0-2.0); BILIRUBIN,TOTAL 0.9 mg/dL (0.0-1.0); BLOOD UREA NITROGEN 9 mg/dL (7-17); CALCIUM 8.8 mg/dL (8.4-10.2); CARBON DIOXIDE 23 mmol/L (22-30); CHLORIDE 107 mmol/L (98-107); CREATININE, serum 0.63 mg/dL (0.52-1.25); EOS # 0.1 (0.0-0.7); EOS % 1.2 % (0-4.0); GLUCOSE 81 mg/dL (74-106); GRAN # 7.4 (1.4-6.5); GRAN % 65.2 % (42.2-75.2); HEMATOCRIT 39.9 % (37.0-47.0); LYMPH # 3.1 (1.2-3.4); LYMPH % 27.7 % (20.0-51.0); MEAN CELL VOLUME 89 fl (80.0-100.0); MEAN CORPUSCULAR HEMOGLOBIN 29 pg (27.0-31.0); MEAN CORPUSCULAR HGB CONC 33 g/dl (33.0-37.0); MEAN PLATELET VOLUME 11.1 fl (7.4-10.4); MONO # 0.6 (0.1-0.6); MONO % 5.3 % (1.7-9.3); PLATELET COUNT 254 K/mm3 (130-400); POTASSIUM 3.6 mmol/L (3.4-5.0); RED BLOOD COUNT 4.48 M/mm3 (4.10-5.30); REDCELL DISTRIBUTION WIDTH-CV 12.6 % (11.5-14.5); SODIUM 140 mmol/L (137-145); TOTAL PROTEIN 7.5 gm/dL (6.4-8.2); WHITE BLOOD COUNT 11.3 K/mm3 (4.8-10.8)
[2016-12-14 22:35] VITALS: BP 121/64; PULSE 67
[2016-12-14 22:48] LABS: TROPONIN-I < 0.012 ng/mL (0.000-0.034)
== END 2016-12-15 | disposition home or self-care (01) ==
LOC: COL.ER 21:09
PROVIDERS: Physician Assistant
DX: R07.9 Chest pain, unspecified (principal); F25.9 Schizoaffective disorder, unspecified; F32.9 Major depressive disorder, single episode, unspecified; F17.200 Nicotine dependence, unspecified, uncomplicated; G40.802 Other epilepsy, not intractable, without status epilepticus; G89.29 Other chronic pain; J45.909 Unspecified asthma, uncomplicated

== ENCOUNTER 2016-12-20 21:44 | Emergency (ER) | payer MEDICAID ==
[~2016-12-20] VITALS: Ht 175.3 cm; Wt 148.2 kg
[2016-12-20 21:51] VITALS: BP 142/98; PULSE 86; TEMP 98
== END 2016-12-20 23:34 | disposition home or self-care (01) ==
LOC: COL.ER 21:44
DX: T78.1XXA Other adverse food reactions, not elsewhere classified, initial encounter (principal); L29.9 Pruritus, unspecified; E11.9 Type 2 diabetes mellitus without complications; I10 Essential (primary) hypertension; R56.9 Unspecified convulsions; J45.909 Unspecified asthma, uncomplicated; F41.9 Anxiety disorder, unspecified; F17.200 Nicotine dependence, unspecified, uncomplicated
CPT/HCPCS: J8540

== ENCOUNTER 2016-12-26 13:35 | Emergency (ER) | payer MEDICAID ==
[~2016-12-26] VITALS: Ht 175.3 cm; Wt 148.2 kg
[2016-12-26 13:54] VITALS: BP 132/82; PULSE 84; TEMP 98.6
== END 2016-12-26 14:15 | disposition home or self-care (01) ==
LOC: COL.ER 13:35
DX: S00.83XA Contusion of other part of head, initial encounter (principal); I10 Essential (primary) hypertension; F17.210 Nicotine dependence, cigarettes, uncomplicated; Y04.0XXA Assault by unarmed brawl or fight, initial encounter; Y99.0 Civilian activity done for income or pay

== ENCOUNTER 2017-02-04 17:23 | Emergency (ER) | payer MEDICAID ==
[~2017-02-04] VITALS: Ht 175.3 cm; Wt 148.2 kg
[2017-02-04 17:25] VITALS: BP 151/94; TEMP 98.6
[2017-02-04 17:46] LABS: BASO % 0.3 % (0.0-2.0); EOS # 0.2 (0.0-0.7); EOS % 1.9 % (0-4.0); GRAN # 5.7 (1.4-6.5); HEMATOCRIT 41.2 % (37.0-47.0); HEMOGLOBIN 13.7 g/dl (12.5-16.0); LYMPH # 2.8 (1.2-3.4); LYMPH % 29.7 % (20.0-51.0); MEAN CELL VOLUME 89 fl (80.0-100.0); MEAN CORPUSCULAR HEMOGLOBIN 30 pg (27.0-31.0); MEAN CORPUSCULAR HGB CONC 33 g/dl (33.0-37.0); MEAN PLATELET VOLUME 11.5 fl (7.4-10.4); MONO # 0.6 (0.1-0.6); MONO % 6.9 % (1.7-9.3); PLATELET COUNT 228 K/mm3 (130-400); RED BLOOD COUNT 4.64 M/mm3 (4.10-5.30); WHITE BLOOD COUNT 9.3 K/mm3 (4.8-10.8)
[2017-02-04 17:54] LABS: ADJUSTED CALCIUM 9.1 mg/dL (8.4-10.2); ALBUMIN 4.2 gm/dL (3.5-5.0); BILIRUBIN,TOTAL 0.3 mg/dL (0.0-1.0); CALCIUM 9.3 mg/dL (8.4-10.2); CREATININE, serum 0.77 mg/dL (0.52-1.25); POTASSIUM 3.4 mmol/L (3.4-5.0); TOTAL PROTEIN 7.4 gm/dL (6.4-8.2)
[2017-02-04 19:23] VITALS: PULSE 85
== END 2017-02-04 19:23 | disposition home or self-care (01) ==
LOC: COL.ER 17:23
PROVIDERS: Emergency Medicine
DX: R56.9 Unspecified convulsions (principal); R41.82 Altered mental status, unspecified; E11.9 Type 2 diabetes mellitus without complications; F17.210 Nicotine dependence, cigarettes, uncomplicated
CPT/HCPCS: J1885; J2060; J7030

== ENCOUNTER 2017-02-09 16:10 | Emergency (ER) | payer MEDICAID ==
[~2017-02-09] VITALS: Ht 175.3 cm; Wt 148.2 kg
[2017-02-09 16:15] VITALS: TEMP 99.1
[2017-02-09 16:38] VITALS: BP 134/89
[2017-02-09 16:51] VITALS: PULSE 85
== END 2017-02-09 16:51 | disposition home or self-care (01) ==
LOC: COL.ER 16:10
DX: S51.812A Laceration without foreign body of left forearm, initial encounter (principal); E11.9 Type 2 diabetes mellitus without complications; I10 Essential (primary) hypertension; J45.909 Unspecified asthma, uncomplicated; F41.9 Anxiety disorder, unspecified; F17.210 Nicotine dependence, cigarettes, uncomplicated; Z79.84 Long term (current) use of oral hypoglycemic drugs; W26.9XXA Contact with unspecified sharp object(s), initial encounter; Y92.002 Bathroom of unspecified non-institutional (private) residence as the place of occurrence of the external cause

== ENCOUNTER 2017-02-16 11:23 | Emergency (ER) | payer MEDICAID ==
[2017-02-16 11:27] VITALS: BP 143/90; PULSE 97; TEMP 99
== END 2017-02-16 11:31 | disposition home or self-care (01) ==
LOC: COL.ER 11:23
DX: S51.812D Laceration without foreign body of left forearm, subsequent encounter (principal)

== ENCOUNTER 2017-04-13 16:50 | Emergency (ER) | payer SELFPAY ==
[~2017-04-13] VITALS: Ht 175.3 cm; Wt 148.2 kg
[2017-04-13 16:52] VITALS: BP 145/105; TEMP 98.1
[2017-04-13] MEDS ORDERED: NORCO 325 MG-51 TAB PO (17:39)
[2017-04-13 17:52] VITALS: PULSE 84
== END 2017-04-13 17:53 | disposition home or self-care (01) ==
LOC: COL.ER 16:50
DX: S80.02XA Contusion of left knee, initial encounter (principal); W18.30XA Fall on same level, unspecified, initial encounter
CPT/HCPCS: J1885

== ENCOUNTER 2017-04-21 20:41 | Emergency (ER) | payer SELFPAY ==
[~2017-04-21] VITALS: Ht 175.3 cm; Wt 147.3 kg
[~2017-04-21 20:41] MED LIST changes: +NORCO 325 MG-51 TAB PO
[2017-04-21 20:49] VITALS: BP 147/89; TEMP 97.8
[2017-04-21 21:52] VITALS: PULSE 88
== END 2017-04-21 21:51 | disposition home or self-care (01) ==
LOC: COL.ER 20:41
DX: T78.1XXA Other adverse food reactions, not elsewhere classified, initial encounter (principal); E11.9 Type 2 diabetes mellitus without complications; F41.9 Anxiety disorder, unspecified; F17.210 Nicotine dependence, cigarettes, uncomplicated
CPT/HCPCS: J1100

== ENCOUNTER 2017-06-05 14:52 | Emergency (ER) | payer BC ==
[~2017-06-05] VITALS: Ht 175.3 cm; Wt 147.3 kg
[2017-06-05 14:57] VITALS: TEMP 98
[2017-06-05] MEDS ORDERED: PREDNISONE20 MG PO (15:49)
[2017-06-05] MEDS ORDERED: EPIPEN 2-PAK1 MG/ML IM (17:05)
[2017-06-05 17:39] VITALS: BP 150/97; PULSE 102
== END 2017-06-05 17:41 | disposition home or self-care (01) ==
LOC: COL.ER 14:52
DX: T78.40XA Allergy, unspecified, initial encounter (principal); J45.909 Unspecified asthma, uncomplicated; F17.210 Nicotine dependence, cigarettes, uncomplicated
CPT/HCPCS: J2060; J2270; J7030

== ENCOUNTER 2017-06-28 21:26 | Emergency (ER) | payer BC ==
[~2017-06-28] VITALS: Ht 175.3 cm; Wt 145.5 kg
[2017-06-28 21:58] VITALS: TEMP 97
[2017-06-28 21:59] LABS: COLLECTION METHOD CLEAN CATCH
[2017-06-28 22:23] LABS: AMORPHOUS CRYSTAL Present /uL; PH 7 (5-8); SQUAMOUS EPITHELIAL 0-2 /hpf; URINE APPEARANCE Cloudy; URINE BACTERIA None Seen /hpf; URINE BILIRUBIN Negative (NEGATIVE); URINE BLOOD 1+ (NEGATIVE); URINE COLOR Yellow; URINE GLUCOSE Negative (NEGATIVE); URINE KETONE Negative (NEGATIVE); URINE LEUKOCYTE ESTERASE Negative (NEGATIVE); URINE NITRATE Negative (NEGATIVE); URINE PROTEIN(semi-quant) Negative (NEGATIVE); URINE RBC 20-50 /hpf; URINE UROBILINOGEN Negative (NEGATIVE)
[2017-06-28 23:05] VITALS: BP 157/116; PULSE 80
== END 2017-06-28 23:05 | disposition home or self-care (01) ==
LOC: COL.ER 21:26
PROVIDERS: Physician Assistant
DX: M54.89 Other dorsalgia (principal); I10 Essential (primary) hypertension
CPT/HCPCS: J1885

== ENCOUNTER 2017-07-07 19:49 | Emergency (ER) | payer BC ==
[~2017-07-07] VITALS: Ht 175.3 cm; Wt 141.8 kg
[2017-07-07 19:53] VITALS: TEMP 97.9
[2017-07-07] MEDS ORDERED: GLUCOPHAGE500 MG/TAB PO (20:28)
[2017-07-07] MEDS ORDERED: FLEXERIL 1010 MG/TAB PO (20:28)
[2017-07-07] MEDS ORDERED: MINIPRESS2 MG PO (20:29)
[2017-07-07] MEDS ORDERED: SEROQUEL 1100 MG/TAB PO (20:29)
[2017-07-07] MEDS ORDERED: ZYPREXA 5MG5 MG PO (20:29)
[2017-07-07] MEDS ORDERED: ULTRAM 50MG TAB50 MG PO (20:29)
[2017-07-07 21:11] VITALS: BP 176/89; PULSE 89
== END 2017-07-07 21:13 | disposition home or self-care (01) ==
LOC: COL.ER 19:49
DX: S70.02XA Contusion of left hip, initial encounter (principal); G40.909 Epilepsy, unspecified, not intractable, without status epilepticus; W18.39XA Other fall on same level, initial encounter; Y92.009 Unspecified place in unspecified non-institutional (private) residence as the place of occurrence of the external cause; Z79.84 Long term (current) use of oral hypoglycemic drugs

== ENCOUNTER 2017-08-01 15:07 | Emergency (ER) | payer BC ==
[~2017-08-01] VITALS: Ht 175.3 cm; Wt 137.7 kg
[~2017-08-01 15:07] MED LIST changes: +DESYREL 100MG100 MG PO; +FLEXERIL 1010 MG/TAB PO; +GLUCOPHAGE500 MG/TAB PO; +K-DUR20 MEQ PO; +MINIPRESS2 MG PO; +SEROQUEL 1100 MG/TAB PO; +ZYPREXA 5MG5 MG PO
[2017-08-01 15:09] VITALS: BP 144/96; TEMP 97.8
[2017-08-01] MEDS ORDERED: ATARAX 25MG25 MG/TAB PO (15:23)
[2017-08-01 15:47] VITALS: PULSE 80
== END 2017-08-01 15:48 | disposition home or self-care (01) ==
LOC: COL.ER 15:07
DX: L29.9 Pruritus, unspecified (principal); T78.40XA Allergy, unspecified, initial encounter; Z79.84 Long term (current) use of oral hypoglycemic drugs
CPT/HCPCS: J1100

== ENCOUNTER 2017-08-07 21:19 | Emergency (ER) | payer BC ==
[~2017-08-07] VITALS: Ht 175.3 cm; Wt 139.5 kg
[~2017-08-07 21:19] MED LIST changes: +ATARAX 25MG25 MG/TAB PO
[2017-08-07 21:26] VITALS: TEMP 97.2
[2017-08-07 22:31] LABS: BASO % 0.4 % (0.0-2.0); EOS # 0.2 (0.0-0.7); GRAN # 5.5 (1.4-6.5); GRAN % 59.1 % (42.2-75.2); HEMATOCRIT 40.4 % (37.0-47.0); HEMOGLOBIN 13.4 g/dl (12.5-16.0); LYMPH % 32.7 % (20.0-51.0); MEAN CELL VOLUME 87 fl (80.0-100.0); MEAN CORPUSCULAR HEMOGLOBIN 29 pg (27.0-31.0); MEAN CORPUSCULAR HGB CONC 33 g/dl (33.0-37.0); MEAN PLATELET VOLUME 11.1 fl (7.4-10.4); MONO # 0.5 (0.1-0.6); MONO % 5.6 % (1.7-9.3); PLATELET COUNT 242 K/mm3 (130-400); RED BLOOD COUNT 4.65 M/mm3 (4.10-5.30); REDCELL DISTRIBUTION WIDTH-CV 12.4 % (11.5-14.5)
[2017-08-07 22:40] LABS: ALBUMIN 4.1 gm/dL (3.5-5.0); BILIRUBIN,TOTAL 0.3 mg/dL (0.0-1.0); CALCIUM 9.4 mg/dL (8.4-10.2); CREATININE, serum 0.75 mg/dL (0.52-1.25)
[2017-08-07 22:44] LABS: POTASSIUM 2.7 mmol/L (3.4-5.0)
[2017-08-07 22:51] LABS: COLLECTION METHOD CLEAN CATCH
[2017-08-07 22:57] LABS: MUCOUS Present /lpf; PH 6 (5-8); URINE APPEARANCE Clear; URINE BACTERIA None Seen /hpf; URINE BILIRUBIN Negative (NEGATIVE); URINE BLOOD 1+ (NEGATIVE); URINE COLOR Yellow; URINE GLUCOSE Negative (NEGATIVE); URINE KETONE Negative (NEGATIVE); URINE LEUKOCYTE ESTERASE Negative (NEGATIVE); URINE NITRATE Negative (NEGATIVE); URINE PROTEIN(semi-quant) Negative (NEGATIVE); URINE RBC 0-2 /hpf
[2017-08-07 22:57] LABS: PROLACTIN 11.9 ng/mL (3.0-18.6)
[2017-08-07] MEDS ORDERED: K-DUR 10 MEQ T10 MEQ PO (23:48)
[2017-08-08 00:10] VITALS: BP 156/106; PULSE 75
== END 2017-08-08 00:11 | disposition home or self-care (01) ==
LOC: COL.ER 21:19
PROVIDERS: Emergency Medicine
DX: G40.909 Epilepsy, unspecified, not intractable, without status epilepticus (principal); I10 Essential (primary) hypertension; E66.9 Obesity, unspecified; F17.290 Nicotine dependence, other tobacco product, uncomplicated; Z79.84 Long term (current) use of oral hypoglycemic drugs

== ENCOUNTER 2017-08-09 16:59 | Emergency (ER) | payer BC ==
[~2017-08-09] VITALS: Ht 152.4 cm; Wt 138.6 kg
[~2017-08-09 16:59] MED LIST changes: +K-DUR 10 MEQ T10 MEQ PO
[2017-08-09 17:07] VITALS: BP 169/85; TEMP 98.4
[2017-08-09 18:06] VITALS: PULSE 87
== END 2017-08-09 18:07 | disposition home or self-care (01) ==
LOC: COL.ER 16:59
DX: T78.1XXA Other adverse food reactions, not elsewhere classified, initial encounter (principal); F17.290 Nicotine dependence, other tobacco product, uncomplicated; Z79.84 Long term (current) use of oral hypoglycemic drugs
CPT/HCPCS: J1100

== ENCOUNTER 2017-08-19 14:09 | Emergency (ER) | payer BC ==
[~2017-08-19] VITALS: Ht 175.3 cm; Wt 138.6 kg
[2017-08-19 14:12] VITALS: BP 154/80; TEMP 98.7
[2017-08-19] MEDS ORDERED: TRIAMCINOLONE A15 GM TP (15:28)
[2017-08-19 15:44] VITALS: PULSE 83
== END 2017-08-19 15:44 | disposition home or self-care (01) ==
LOC: COL.ER 14:09
DX: L30.9 Dermatitis, unspecified (principal); E11.9 Type 2 diabetes mellitus without complications; G40.909 Epilepsy, unspecified, not intractable, without status epilepticus; F31.9 Bipolar disorder, unspecified; F41.9 Anxiety disorder, unspecified; Z79.84 Long term (current) use of oral hypoglycemic drugs

== ENCOUNTER 2017-08-20 08:46 | Emergency (ER) | payer BC ==
[~2017-08-20] VITALS: Wt 136.8 kg
[~2017-08-20 08:46] MED LIST changes: +TRIAMCINOLONE A15 GM TP
[2017-08-20 08:51] VITALS: BP 143/100
[2017-08-20 09:40] LABS: BASO % 0.5 % (0.0-2.0); EOS # 0.1 (0.0-0.7); EOS % 1.1 % (0-4.0); GRAN % 60.9 % (42.2-75.2); HEMATOCRIT 41.4 % (37.0-47.0); HEMOGLOBIN 13.6 g/dl (12.5-16.0); MEAN CELL VOLUME 87 fl (80.0-100.0); MEAN CORPUSCULAR HEMOGLOBIN 29 pg (27.0-31.0); MEAN CORPUSCULAR HGB CONC 33 g/dl (33.0-37.0); MEAN PLATELET VOLUME 11.5 fl (7.4-10.4); MONO # 0.5 (0.1-0.6); MONO % 7.2 % (1.7-9.3); PLATELET COUNT 231 K/mm3 (130-400); RED BLOOD COUNT 4.78 M/mm3 (4.10-5.30); REDCELL DISTRIBUTION WIDTH-CV 12.9 % (11.5-14.5)
[2017-08-20 10:09] LABS: ALBUMIN 3.8 gm/dL (3.5-5.0); BILIRUBIN,TOTAL 0.6 mg/dL (0.0-1.0); CALCIUM 9.1 mg/dL (8.4-10.2); CREATININE, serum 0.7 mg/dL (0.52-1.25); POTASSIUM 3.3 mmol/L (3.4-5.0); TOTAL PROTEIN 7.7 gm/dL (6.4-8.2)
[2017-08-20 10:26] LABS: PROLACTIN 16.3 ng/mL (3.0-18.6)
[2017-08-20 10:57] LABS: COLLECTION METHOD CLEAN CATCH
[2017-08-20 11:03] LABS: MUCOUS Present /lpf; PH 7 (5-8); URINE APPEARANCE Clear; URINE BACTERIA None Seen /hpf; URINE BILIRUBIN Negative (NEGATIVE); URINE BLOOD 1+ (NEGATIVE); URINE COLOR Yellow; URINE GLUCOSE Negative (NEGATIVE); URINE KETONE Negative (NEGATIVE); URINE LEUKOCYTE ESTERASE Trace (NEGATIVE); URINE NITRATE Negative (NEGATIVE); URINE PROTEIN(semi-quant) Negative (NEGATIVE); URINE RBC 0-2 /hpf; URINE UROBILINOGEN Negative (NEGATIVE)
[2017-08-20 11:33] VITALS: PULSE 81; TEMP 97.9
== END 2017-08-20 11:30 | disposition home or self-care (01) ==
LOC: COL.ER 08:46
PROVIDERS: Emergency Medicine; Physician Assistant
DX: G40.909 Epilepsy, unspecified, not intractable, without status epilepticus (principal); E11.9 Type 2 diabetes mellitus without complications; I10 Essential (primary) hypertension; F31.9 Bipolar disorder, unspecified; F41.9 Anxiety disorder, unspecified; F17.210 Nicotine dependence, cigarettes, uncomplicated; Z87.2 Personal history of diseases of the skin and subcutaneous tissue; Z98.890 Other specified postprocedural states; Z79.84 Long term (current) use of oral hypoglycemic drugs
CPT/HCPCS: J2060; J7030

== ENCOUNTER 2017-11-22 21:30 | Emergency (ER) | payer BC ==
[~2017-11-22] VITALS: Ht 175.3 cm; Wt 124.5 kg
[2017-11-22 21:37] VITALS: BP 130/86; TEMP 98.8
[2017-11-22 22:23] LABS: COLLECTION METHOD CLEAN CATCH
[2017-11-22 22:26] LABS: BASO % 0.5 % (0.0-2.0); EOS # 0.1 (0.0-0.7); GRAN # 5.2 (1.4-6.5); GRAN % 59.1 % (42.2-75.2); HEMATOCRIT 38.3 % (37.0-47.0); HEMOGLOBIN 12.7 g/dl (12.5-16.0); LYMPH % 34.7 % (20.0-51.0); MEAN CELL VOLUME 87 fl (80.0-100.0); MEAN CORPUSCULAR HEMOGLOBIN 29 pg (27.0-31.0); MEAN CORPUSCULAR HGB CONC 33 g/dl (33.0-37.0); MEAN PLATELET VOLUME 11.3 fl (7.4-10.4); MONO # 0.4 (0.1-0.6); MONO % 4.5 % (1.7-9.3); PLATELET COUNT 238 K/mm3 (130-400); RED BLOOD COUNT 4.43 M/mm3 (4.10-5.30); REDCELL DISTRIBUTION WIDTH-CV 12.2 % (11.5-14.5)
[2017-11-22 22:37] LABS: MUCOUS Present /lpf; PH 7 (5-8); SQUAMOUS EPITHELIAL 0-2 /hpf; URINE APPEARANCE Clear; URINE BACTERIA None Seen /hpf; URINE BILIRUBIN Negative (NEGATIVE); URINE BLOOD 2+ (NEGATIVE); URINE COLOR Yellow; URINE GLUCOSE Negative (NEGATIVE); URINE KETONE Negative (NEGATIVE); URINE LEUKOCYTE ESTERASE Negative (NEGATIVE); URINE NITRATE Negative (NEGATIVE); URINE PROTEIN(semi-quant) Negative (NEGATIVE); URINE RBC 0-2 /hpf; URINE UROBILINOGEN Negative (NEGATIVE)
[2017-11-22 22:40] LABS: ALBUMIN 4.1 gm/dL (3.5-5.0); BILIRUBIN,TOTAL 0.6 mg/dL (0.0-1.0); C-REACTIVE PROTEIN 1.2 mg/dL (0.0-0.9); CALCIUM 8.8 mg/dL (8.4-10.2); CREATININE, serum 0.73 mg/dL (0.52-1.25); TOTAL PROTEIN 7.5 gm/dL (6.4-8.2)
[2017-11-22] MEDS ORDERED: PREDNISONE20 MG PO (22:45)
[2017-11-23] MEDS ORDERED: COLACE 100100 MG/CAP PO (01:19)
[2017-11-23] MEDS ORDERED: PROTONIX20 MG PO (01:19)
[2017-11-23] MEDS ORDERED: NORCO 325 MG-51 TAB PO (01:19)
[2017-11-23 01:28] VITALS: PULSE 75
== END 2017-11-23 01:30 | disposition home or self-care (01) ==
LOC: COL.ER 21:30
PROVIDERS: Emergency Medicine
DX: R10.11 Right upper quadrant pain (principal); K59.00 Constipation, unspecified; K21.9 Gastro-esophageal reflux disease without esophagitis; E87.6 Hypokalemia; E11.9 Type 2 diabetes mellitus without complications; I10 Essential (primary) hypertension; E66.9 Obesity, unspecified; G40.909 Epilepsy, unspecified, not intractable, without status epilepticus; F17.290 Nicotine dependence, other tobacco product, uncomplicated; Z68.41 Body mass index [BMI] 40.0-44.9, adult; Z79.84 Long term (current) use of oral hypoglycemic drugs
CPT/HCPCS: J1170; J1200; J1885; J2405; J3010; J7030; Q9967

== ENCOUNTER 2017-12-12 13:48 | Emergency (ER) | payer BC ==
[~2017-12-12] VITALS: Ht 175.3 cm; Wt 123.6 kg
[~2017-12-12 13:48] MED LIST changes: +COLACE 100100 MG/CAP PO; +PROTONIX20 MG PO
[2017-12-12 13:51] VITALS: TEMP 97.8
[2017-12-12 15:32] VITALS: BP 148/92; PULSE 79
== END 2017-12-12 15:33 | disposition home or self-care (01) ==
LOC: COL.ER 13:48
DX: S09.90XA Unspecified injury of head, initial encounter (principal); F17.290 Nicotine dependence, other tobacco product, uncomplicated; Z79.899 Other long term (current) drug therapy; Z79.84 Long term (current) use of oral hypoglycemic drugs; Z88.8 Allergy status to other drugs, medicaments and biological substances; W18.30XA Fall on same level, unspecified, initial encounter; W22.8XXA Striking against or struck by other objects, initial encounter; Y99.0 Civilian activity done for income or pay

== ENCOUNTER 2018-03-03 18:44 | Emergency (ER) | payer BC ==
[~2018-03-03] VITALS: Ht 175.3 cm; Wt 104.5 kg
[2018-03-03 18:48] VITALS: BP 179/91; TEMP 97.6
[2018-03-03] MEDS ORDERED: DOXYCYCLINE 10100 MG PO (19:10)
[2018-03-03 19:16] VITALS: PULSE 88
== END 2018-03-03 19:16 | disposition home or self-care (01) ==
LOC: COL.ER 18:44
DX: L30.9 Dermatitis, unspecified (principal); E11.9 Type 2 diabetes mellitus without complications; F31.9 Bipolar disorder, unspecified; Z87.891 Personal history of nicotine dependence; Z79.84 Long term (current) use of oral hypoglycemic drugs